=== PATIENT | female | born 1985 | race Caucasian/White ===

== ENCOUNTER 2016-12-20 09:00 | Emergency (ER) | payer OTHER ==
[~2016-12-20 09:00] MED LIST: CITALOPRAM HBR20 MG; ZYRTEC10 MG
[2016-12-20] MEDS ORDERED: VITAMIN D50000 UNI1 PO (09:39)
[2016-12-20] MEDS ORDERED: LEVOTHYROXINE25 MCG PO (09:39)
[2016-12-20] MEDS ORDERED: PERCOCET 5-3251 EACH PO (12:18)
== END 2016-12-20 12:54 | disposition home or self-care (01) ==
LOC: ED 09:00
DX: N20.1 Calculus of ureter (principal); E03.9 Hypothyroidism, unspecified; F32.9 Major depressive disorder, single episode, unspecified; Z90.49 Acquired absence of other specified parts of digestive tract; Z79.899 Other long term (current) drug therapy
CPT/HCPCS: 80053; 81001; 84703; 85025; 87088; 96374; 96375; 99283; J1170; J1885; J2405; J7030

== ENCOUNTER 2019-04-08 14:03 | Emergency (ER) | payer OTHER ==
[~2019-04-08] VITALS: Ht 175.3 cm; Wt 136.1 kg
[~2019-04-08 14:03] MED LIST changes: +LEVOTHYROXINE25 MCG PO; +PERCOCET 5-3251 EACH PO; +VITAMIN D50000 UNI1 PO
[2019-04-08] MEDS ORDERED: VENTOLIN HFA18 GM INH (14:15)
[2019-04-08] MEDS ORDERED: VIIBRYD40 MG PO (14:17)
[2019-04-08] MEDS ORDERED: SEROQUEL XR50 MG PO (14:17)
[2019-04-08] MEDS ORDERED: SPIRONOLACTONE50 MG PO (14:17)
[2019-04-08] MEDS ORDERED: LEVOXYL112 MCG PO (14:18)
[2019-04-08] MEDS ORDERED: SETLAKIN 0.151 EACH PO (14:18)
[2019-04-08] MEDS ORDERED: ZITHROMAX250 MG PO (17:13)
--- NOTE | 2019-04-09 19:12 | EKG ---
[facility] [address] [facility] [place], [place] [address] Signed Normal sinus rhythm Normal ECG No previous ECGs available Confirmed by PALLAVI LAU MD ([id number]) on 04/09/2019 7:12:01 PM Electronically Signed By: PALLAVI LAU MD 04/09/191911 PATIENT NAME: KVNG LOREDO Electrocardiogram DATE OF : 87 PHYSICIAN: PALLAVI LAU MD REPORT #: [id number] REPORT IS CONFIDENTIAL AND NOT TO BE RELEASED WITHOUT AUTHORIZATION
== END 2019-04-08 17:30 | disposition home or self-care (01) ==
LOC: ED 14:03
DX: J45.909 Unspecified asthma, uncomplicated (principal); F32.9 Major depressive disorder, single episode, unspecified; E03.9 Hypothyroidism, unspecified; Z87.442 Personal history of urinary calculi; Z79.899 Other long term (current) drug therapy
CPT/HCPCS: 71046; 80053; 84484; 85025; 85379; 93005; 93010; 96361; 96374; 96375; 99285-25; J1100; J2060; J7030

== ENCOUNTER 2022-03-08 20:24 | Emergency (ER) | payer OTHER ==
[~2022-03-08] VITALS: Ht 175.3 cm; Wt 150.6 kg
[~2022-03-08 20:24] MED LIST changes: +LEVOXYL112 MCG PO; +SEROQUEL XR50 MG PO; +SETLAKIN 0.151 EACH PO; +SPIRONOLACTONE50 MG PO; +VENTOLIN HFA18 GM INH; +VIIBRYD40 MG PO; +ZITHROMAX250 MG PO
[2022-03-08] MEDS ORDERED: CLONIDINE HCL0.1 MG PO (21:26)
[2022-03-08] MEDS ORDERED: HYDROXYZINE HCL50 MG PO (21:27)
[2022-03-08] MEDS ORDERED: FLUOXETINE HCL40 MG PO (21:27)
[2022-03-08] MEDS ORDERED: CYCLOBENZAPRINE10 MG PO (22:50)
== END 2022-03-08 23:14 | disposition home or self-care (01) ==
LOC: ED 20:24
DX: S39.012A Strain of muscle, fascia and tendon of lower back, initial encounter (principal); X50.0XXA Overexertion from strenuous movement or load, initial encounter; E03.9 Hypothyroidism, unspecified; Z79.899 Other long term (current) drug therapy
CPT/HCPCS: 72100; 81001; 84703; 96372; 99283-25; A9270; J1885; J3360

== ENCOUNTER 2022-07-24 14:58 | Emergency (ER) | payer OTHER ==
[~2022-07-24] VITALS: Ht 175.3 cm; Wt 151.0 kg
[~2022-07-24 14:58] MED LIST changes: +CLONIDINE HCL0.1 MG PO; +CYCLOBENZAPRINE10 MG PO; +FLUOXETINE HCL40 MG PO; +HYDROXYZINE HCL50 MG PO
== END 2022-07-24 18:26 | disposition short-term general hospital (02) ==
LOC: ED 14:58
DX: S02.31XA Fracture of orbital floor, right side, initial encounter for closed fracture (principal); S52.572A Other intraarticular fracture of lower end of left radius, initial encounter for closed fracture; E03.9 Hypothyroidism, unspecified; Z79.899 Other long term (current) drug therapy; Z20.822 Contact with and (suspected) exposure to COVID-19; V03.90XA Pedestrian on foot injured in collision with car, pick-up truck or van, unspecified whether traffic or nontraffic accident, initial encounter
CPT/HCPCS: 36415; 70450; 70486; 71260; 72125; 73030; 73110; 73560; 74177; 80053; 84703; 85025; 86850; 86900; 86901; 99285-25; C9803; G0480; J1170; J2405; J7030; Q9967; U0003

== ENCOUNTER 2022-08-11 19:42 | Emergency (ER) | payer OTHER ==
[~2022-08-11] VITALS: Ht 175.3 cm; Wt 151.0 kg
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
[2022-08-11] MEDS ORDERED: OXYCODONE HCL5 MG PO (20:29)
[2022-08-11] MEDS ORDERED: GABAPENTIN300 MG PO (20:29)
[2022-08-11] MEDS ORDERED: ELIQUIS2.5 MG PO (20:29)
== END 2022-08-12 12:20 ==
LOC: ED 19:42
DX: R45.851 Suicidal ideations (principal); E03.9 Hypothyroidism, unspecified; Z88.2 Allergy status to sulfonamides; Z79.899 Other long term (current) drug therapy
CPT/HCPCS: 36415; 80053; 81001; 84443; 85025; 99285; A9270; G0480; U0003

== ENCOUNTER 2022-09-22 06:25 | Day surgery (SDC) | payer OTHER ==
[~2022-09-22] VITALS: Ht 175.3 cm; Wt 150.0 kg
[~2022-09-22 06:25] MED LIST changes: +ELIQUIS2.5 MG PO; +GABAPENTIN300 MG PO; +OXYCODONE HCL5 MG PO; -ZYRTEC10 MG; +ZYRTEC10 MG PO
[2022-09-22] MEDS ORDERED: HYDROCODON-ACE1 EA10 PO (09:31)
--- NOTE | 2022-09-22 09:43 | NUR ---
PT ALERT,ORIENTED AND ANXIOUS TO HAVE PROCEDURE COMPLETED. PT STATED SHE HAS NOT BEEN ABLE TO USE HER HAND/WRIST MUCH THE LAST 2 MONTHS. GAVE ENCOURAGEMENT PTS' SISTER WILL ARRIVE FOR DC. PT DECLINED PRAYER, GAVE BLESSING
--- NOTE | 2022-09-22 09:48 | NUR ---
ASHLI 0940: PT IS BACK TO FROM PACU. SHE IS TAKEN OFF O2 FOR ROOM AIR TRIAL. CALL [facility] WITHIN REACH. WATER ON BEDSIDE TABLE. SHE WOULD LIKE CRACKERS TO SNACK ON. WOULD LIKE PAIN PILL WELL. NO OTHER ISSUES OR CONCERNS AT THIS TIME.
--- NOTE | 2022-09-22 09:52 | NUR ---
09/22/22 0952 Cherelle,Humaira 0849 PT ARRIVED TO PACU WITH ORAL AIRWAY ON PLACE AND 10L VIA MASK. JAW THRUST USED OFF AND ON TO MAINTAIN AIRWAY. O2 DECREASED TO LOW 90S OFF AND ON. 0855 PT WOKE TO TACTILE STIMULI AND ORAL AIRWAY REMOVED. PT ENCOURAGED TO COUGH AND DEEP BREATHE. PT RESP EVEN AND UNLABORED. ICE IN PLACE. 09 PT STARTS MOANING AND REPORTS PAIN IN LEFT WRIST, O2 MASK REMOVED. PT GRIMACING OFF AND ON. 904 PT O2 SAT DECREASED TO 87% AND DEEP BREATHING ENCOURAGED. PT CONTINUES TO REPORTS PAIN AND MOAN. 0907 GARAGE DOOR INSTALLER UPDATED. 0911 PAIN MEDICATION GIVEN PER EMAR. 0918 PT REPORTS "IT TOOK TO EDGE OFF." REPORTS PAIN 7/10. MEDICATION GIVEN. O2 SAT MID 90S. 0924 PT RESTING IN BED WITH NO GRIMACING OR MOANING, EYES CLOSED AND O2 SAT ABOVE 90%. 0928 GARAGE DOOR INSTALLER AT BEDSIDE AND PLAN OF CARE DISCUSSED. 0940 PT REPORTS 4/10 PAIN AND TOLERABLE. REPORT TO DS RN. VSS AND CALL LIGHT WITHIN REACH. ALL QUESTIONS ANSWERED.
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
--- NOTE | 2022-09-22 11:50 | NUR ---
DISCHARGE INSTRUCTIONS PROVIDED. PT STATES VERBAL UNDERSTANDING. IV DC'ED, COBAN AND GAUZE IN PLACE AT THIS TIME. PT REPORTS NO FURTHER QUESTIONS OR NEEDS AT THIS TIME. ALL BELONGINGS IN PT POSSESSION AT THIS TIME. PT OFF UNIT VIA WC BY THIS RN, SISTER HERE FOR PICKUP.
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
== END 2022-09-22 11:50 | disposition home or self-care (01) ==
LOC: DS 06:25
PROVIDERS: ATTEND Specialist
PROC: 0PPJ04Z Removal of Internal Fixation Device from Left Radius, Open Approach (ICD-10-PCS; principal; 2022-09-22 08:30)
DX: Z47.2 Encounter for removal of internal fixation device (principal); S52.572D Other intraarticular fracture of lower end of left radius, subsequent encounter for closed fracture with routine healing; V03.10XA Pedestrian on foot injured in collision with car, pick-up truck or van in traffic accident, initial encounter
CPT/HCPCS: 84703; J0131; J0690; J1100; J1885; J2001; J2250; J2405; J2704; J3010; J7121

== ENCOUNTER 2022-10-28 21:17 | Emergency (ER) | payer OTHER ==
[~2022-10-28] VITALS: Ht 175.3 cm; Wt 145.6 kg
[~2022-10-28 21:17] MED LIST changes: +HYDROCODON-ACE1 EA10 PO
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
[2022-10-28] MEDS ORDERED: HYDROCODON-ACE1 EA10 PO (22:45)
[2022-10-28 23:21] VITALS: BP 122/82
== END 2022-10-28 23:22 | disposition home or self-care (01) ==
LOC: ED 21:17
DX: K80.50 Calculus of bile duct without cholangitis or cholecystitis without obstruction (principal); Z88.2 Allergy status to sulfonamides; Z79.899 Other long term (current) drug therapy; Z79.890 Hormone replacement therapy
CPT/HCPCS: 36415; 80053; 81001; 83690; 84703; 85025; 96374; 96375; 99284-25; A9270; J1170; J1885; J2270; J2405

== ENCOUNTER 2022-11-15 22:38 | Emergency (ER) | payer OTHER ==
[~2022-11-15] VITALS: Ht 175.3 cm; Wt 143.0 kg
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
[2022-11-16] MEDS ORDERED: ONDANSETRON ODT8 MG PO (00:09)
[2022-11-16] MEDS ORDERED: HYDROCODON-ACE1 EA10 PO (00:09)
[2022-11-16 00:30] VITALS: BP 155/92
== END 2022-11-16 00:30 | disposition home or self-care (01) ==
LOC: ED 22:38
DX: K52.9 Noninfective gastroenteritis and colitis, unspecified (principal); R31.9 Hematuria, unspecified; E03.9 Hypothyroidism, unspecified; Z88.2 Allergy status to sulfonamides; Z79.899 Other long term (current) drug therapy
CPT/HCPCS: 36415; 80053; 81001; 83690; 84703; 85025; 96361; 96374; 99284-25; A9270; J2405; J7030

== ENCOUNTER 2024-04-08 22:22 | Emergency (ER) | payer OTHER ==
[~2024-04-08] VITALS: Ht 175.3 cm; Wt 147.0 kg
[~2024-04-08 22:22] MED LIST changes: -LEVOXYL112 MCG PO; +LEVOXYL137 MCG PO; +ONDANSETRON ODT8 MG PO
[2024-04-08] MEDS ORDERED: ondansetron HCL 4 MG/2 ML VIAL IV ONE (23:00)
[2024-04-08] MEDS ORDERED: KETOROLAC TROMETHAMINE 30 MG/ML VIAL IV ONE (23:00)
[2024-04-08] MEDS ORDERED: DEXTROAMP-AMPHE25 MG (23:00)
[2024-04-08] MEDS ORDERED: VENLAFAXINE112.5 MG (23:00)
[2024-04-08] MEDS ORDERED: TRAZODONE HCL50 MG (23:01)
[2024-04-08] MEDS ORDERED: FLUTICASONE-SA1 EAC3 (23:01)
[2024-04-08] MEDS ORDERED: QUETIAPINE FUM100 MG (23:01)
[2024-04-08] MEDS ORDERED: LAMOTRIGINE25 MG (23:01)
[2024-04-08] MEDS ORDERED: CLONIDINE HCL0.1 MG (23:01)
[2024-04-08 23:02] LABS: BILIRUBIN, URINE NEGATIVE (negative); BLOOD/HGB, URINE SMALL (Negative); KETONE, URINE NEGATIVE (Negative); LEUK ESTERASE, URINE NEGATIVE (negative); NITRITE, URINE NEGATIVE (negative)
[2024-04-08 23:03] LABS: EOSINOPHILS 1.6 % (0-6); HEMATOCRIT 38.5 % (35.0-50.0); HEMOGLOBIN 12.8 g/dL (12.0-18.0); LYMPHOCYTES 35.2 % (24-44); MCH 29.5 (27-36); MCHC 33.2 g/dl (30-36); MCV 88.6 fl (81-99); MONOCYTES 5.9 % (0-12); NEUTROPHILS 56.3 % (39-80); PLATELET COUNT 264 K/uL (140-440); RBC 4.34 M/ul (4.3-5.7); RDW 13.4 (10.5-15.0)
[2024-04-08 23:09] LABS: BACTERIA, URINE RARE /hpf (negative); CASTS, URINE NONE SEEN \\lpf; COLLECTION TYPE, URINE CLEAN CATCH; CRYSTALS, URINE NONE SEEN (0-1+); EPITHELIAL CELLS, URINE SQUAMOUS 1+ /lpf (0-1+); REFLEX CULTURE, URINE No (No)
[2024-04-08] MEDS ORDERED: TAMSULOSIN HCL 0.4 MG CAP PO ONE (23:15)
[2024-04-08] MEDS ORDERED: LACTATED RINGER'S 1,000 ML IV ONE (23:15)
[2024-04-08 23:23] LABS: ALBUMIN 3.2 g/dL (3.4-5.0); ALBUMIN/GLOBULIN RATIO 0.78 (1.1-2.4); ANION GAP 12.9 (7-21); BILIRUBIN, TOTAL 0.4 ng/dL (0.2-1.0); BUN/CREATININE RATIO 18.6 (6.0-28.6); CALCIUM 9.7 mg/dL (8.5-10.1); CREATININE, SERUM 0.86 mg/dL (0.55-1.02); POTASSIUM 3.9 mmol/L (3.5-5.1); PROTEIN, TOTAL 7.3 g/dL (6.4-8.2)
[2024-04-09] MEDS ORDERED: FLOMAX0.4 MG PO (02:03)
[2024-04-09] MEDS ORDERED: HYDROCODON-ACE1 EA10 PO (02:03)
[2024-04-09] MEDS ORDERED: HYDROCODONE BIT/ACETAMINOPHEN 5/325 MG 1 TAB HOME.PACK PO ONE (02:15)
[2024-04-09 02:18] VITALS: BP 152/80
[2024-04-10] MEDS ORDERED: ADVAIR 100-501 EACH INH (09:32)
[2024-04-10] MEDS ORDERED: MAGNESIUM250 M1 (09:33)
[2024-04-10] MEDS ORDERED: VITAMIN B121000 MCG PO (09:34)
[2024-04-10] MEDS ORDERED: ZYRTEC10 MG PO (09:34)
== END 2024-04-09 02:20 | disposition home or self-care (01) ==
LOC: ED 22:22
PROVIDERS: Internal Medicine
DX: N13.2 Hydronephrosis with renal and ureteral calculous obstruction (principal); E03.9 Hypothyroidism, unspecified; Z87.442 Personal history of urinary calculi; Z88.2 Allergy status to sulfonamides; Z79.890 Hormone replacement therapy; Z79.899 Other long term (current) drug therapy
CPT/HCPCS: 36415; 74176; 80053; 81001; 84703; 85025; 96374; 96375; 99284-25; A9270; J1885; J2405; J7121

== ENCOUNTER 2024-04-10 12:32 | Day surgery (SDC) | payer OTHER ==
[~2024-04-10] VITALS: Ht 175.3 cm; Wt 145.9 kg
[~2024-04-10 12:32] MED LIST changes: +ADVAIR 100-501 EACH INH; +CEFAZOLIN SODIUM 3 GM/30 ML SYR IV SCH; +CLONIDINE HCL0.1 MG; +DEXTROAMP-AMPHE25 MG; +FLOMAX0.4 MG PO; +FLUTICASONE-SA1 EAC3; +HYDROmorphone HCL 1 MG/ML SYR IV PRN; +IBLOOD GLUCOSE TEST STRIP 1 EA TEST VI PRN; +KETOROLAC TROMETHAMINE 30 MG/ML VIAL IV PRN; +LACTATED RINGER'S 1,000 ML IV SCH; +LAMOTRIGINE25 MG; +LIDOCAINE HCL 1% 5 ML SDV INJ ONE; +MAGNESIUM250 M1; +OXYCODONE/APAP 5/325 TAB PO PRN; +PHENAZOPYRIDINE HCL 95 MG TAB PO PRN; +QUETIAPINE FUM100 MG; +SEVOFLURANE 250 ML BTL INH ONE; +TRAZODONE HCL50 MG; +VENLAFAXINE112.5 MG; +VITAMIN B121000 MCG PO; +ondansetron HCL 4 MG/2 ML VIAL IV PRN
[2024-04-10 12:42] VITALS: BP 157/83
[2024-04-10] MEDS ORDERED: iopamidoL 30 ML VIAL ONE (13:10)
[2024-04-10] MEDS ORDERED: ACETAMINOPHEN 1,000 MG/100 ML VIAL ONE (13:17)
[2024-04-10] MEDS ORDERED: SCOPOLAMINE 1 MG/3 DAYS PATCH 1 EACH TDSY ONE (13:17)
[2024-04-10] MEDS ORDERED: fentaNYL citrate 100 MCG/2 ML VIAL ONE ×2 (13:17→14:48)
[2024-04-10] MEDS ORDERED: propofoL 200 MG/20 ML VIAL ONE (13:17)
[2024-04-10] MEDS ORDERED: MIDAZOLAM HCL 2 MG/2 ML VIAL ONE (13:17)
[2024-04-10] MEDS ORDERED: ondansetron HCL 4 MG/2 ML VIAL ONE (13:17)
[2024-04-10] MEDS ORDERED: LIDOCAINE HCL 2% 5 ML SDV ONE (13:17)
[2024-04-10] MEDS ORDERED: ROCURONIUM BROMIDE 50 MG/5 ML SYR ONE (13:17)
[2024-04-10] MEDS ORDERED: DEXAMETHASONE SOD PHOS 4 MG/ML VIAL ONE (13:17)
[2024-04-10] MEDS ORDERED: KETOROLAC TROMETHAMINE 30 MG/ML VIAL ONE (13:17)
[2024-04-10] MEDS ORDERED: SUGAMMADEX SODIUM 200 MG/2 ML ML ONE (13:18)
[2024-04-10] MEDS ORDERED: PROCHLORPERAZINE EDISYLATE 10 MG/2 ML VIAL IV PRN (14:00)
[2024-04-10] MEDS ORDERED: droPERidol 5 MG/2 ML VIAL IV PRN (14:00)
[2024-04-10] MEDS ORDERED: fentaNYL citrate 50 MCG/ML SDV IV PRN (14:00)
[2024-04-10] MEDS ORDERED: IBLOOD GLUCOSE TEST STRIP 1 EA TEST VI PRN (14:00)
[2024-04-10] MEDS ORDERED: HYDROmorphone HCL 1 MG/ML SYR IV PRN (14:00)
[2024-04-10] MEDS ORDERED: NALOXONE HCL 0.4 MG SYR IV PRN (14:00)
[2024-04-10] MEDS ORDERED: ondansetron HCL 4 MG/2 ML VIAL IV PRN (14:00)
[2024-04-10] MEDS ORDERED: LACTATED RINGER'S 1,000 ML IV ONE (14:39)
--- NOTE | 2024-04-10 15:26 | NUR ---
04/10/24 1526 JANAE HERNANDEZ 1458 PT ARRIVED TO PACU VIA STREACHER. PT HAS ORAL AIRWAY IN PLACE, PT HAS 6L OF O2 VIA FACE MASK. PT NEEDING JAW THRUST CONTINUOUSLY TO MAINTAIN AIRWAY PATIENTCY. REPORT TAKEN FROM EMMY GOMEZ. 1505 PT BECAME REACTIVE TO JAW THRUSTING, PT ABLE TO FOLLOW COMMANDS AND OPEN MOUTH. ORAL AIRWAY REMOVED. 1515 PT REPORTING NO PAIN AT THIS TIME OR NAUSEA. PT STILL VERY DROWSEY. 1520 PT REPORTS 3/10 PAIN, OXYGEN REMOVED. PT MAINTAINING ABOVE 90% OXYGEN ON RA. 1525 PT OXYGEN SATURATIONS DIP DOWN TO 90% ON RA WHEN PT FALLS ASLEEP, PT AROUSED TO VERBAL STIMULI AND FOLLOW COMMANDS FOR DEEP BREATHING. WHEN DEEP BREATHING PT OXYGEN SAT GOES UP TO 100% ON RA.
[2024-04-10 15:43] VITALS: BP 148/84
--- NOTE | 2024-04-10 15:54 | NUR ---
Patient returns to room 4 via bed from PACU. patient is awake, but still a little drowsy. she is reporting some slight nausea, but believes it might be due to being hungry. crackers, pudding, and water provided to patient and instructed to go slow with putting food back into her stomach. Patient reports her pain as a 3/10 and states that it is tolerable. She feels a slight urge to urinate but denies wanting to get up and try to urinate at this time. No blood loss during surgery. ureteral stent in place that is adhered to patient's left leg with steri strips. patient is to remove this herself later this week. bed is in lowest position and call light is within reach. she denies any other needs at this time.
[2024-04-10 16:43] VITALS: BP 175/86
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
--- NOTE | 2024-04-10 21:44 | EKG ---
[facility] [address] [facility] [place], [place] [address] Signed Normal sinus rhythm Normal ECG When compared with ECG of 08-APR-2019 14:28, No significant change was found Confirmed by Rayshawn Mon MD ([id number]) on 04/10/2024 9:43:50 PM Electronically Signed By: RAYSHAWN MON DO 04/10/242143 PATIENT NAME: FACUNDOBRAXTON PepperKVNGJULIO ZAVALA Electrocardiogram DATE OF : 87 PHYSICIAN: RAYSHAWN MON DO REPORT #: [id number] REPORT IS CONFIDENTIAL AND NOT TO BE RELEASED WITHOUT AUTHORIZATION
[2024-04-11] MEDS ORDERED: ONDANSETRON ODT8 MG PO (21:36)
[2024-04-14 15:30] LABS: CALCULI MASS 32 mg (())
== END 2024-04-10 16:50 | disposition home or self-care (01) ==
LOC: DS 12:32
PROVIDERS: ATTEND Urology
PROC: BT1DZZZ Fluoroscopy of Right Kidney, Ureter and Bladder (ICD-10-PCS; principal; 2024-04-10 12:45)
PROC: 0TC08ZZ Extirpation of Matter from Right Kidney, Via Natural or Artificial Opening Endoscopic (ICD-10-PCS; 2024-04-10 12:45)
DX: N13.2 Hydronephrosis with renal and ureteral calculous obstruction (principal); E03.9 Hypothyroidism, unspecified; Z79.899 Other long term (current) drug therapy; Z88.2 Allergy status to sulfonamides
CPT/HCPCS: 00910; 74420; 82365; 93005; 93010; C1769; C2617; J0131; J0690; J1100; J1885; J2250; J2405; J2704; J3010; J3490; J7121; Q9967

== ENCOUNTER 2024-04-11 18:25 | Emergency (ER) | payer OTHER ==
[~2024-04-11] VITALS: Ht 175.3 cm; Wt 149.9 kg
[~2024-04-11 18:25] MED LIST changes: -CEFAZOLIN SODIUM 3 GM/30 ML SYR IV SCH; -HYDROmorphone HCL 1 MG/ML SYR IV PRN; -IBLOOD GLUCOSE TEST STRIP 1 EA TEST VI PRN; -KETOROLAC TROMETHAMINE 30 MG/ML VIAL IV PRN; -LACTATED RINGER'S 1,000 ML IV SCH; -LIDOCAINE HCL 1% 5 ML SDV INJ ONE; -OXYCODONE/APAP 5/325 TAB PO PRN; -PHENAZOPYRIDINE HCL 95 MG TAB PO PRN; -SEVOFLURANE 250 ML BTL INH ONE; -ondansetron HCL 4 MG/2 ML VIAL IV PRN
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
[2024-04-11] MEDS ORDERED: MORPHINE SULFATE 4 MG/ML VIAL IV ONE (20:30)
[2024-04-11] MEDS ORDERED: ondansetron HCL 4 MG/2 ML VIAL IV ONE (20:30)
[2024-04-11 20:56] LABS: BASOPHILS 0.6 % (0-2); EOSINOPHILS 0.7 % (0-6); HEMATOCRIT 36.3 % (35.0-50.0); HEMOGLOBIN 12.2 g/dL (12.0-18.0); LYMPHOCYTES 34.3 % (24-44); MCH 29.5 (27-36); MCHC 33.6 g/dl (30-36); MCV 87.7 fl (81-99); MONOCYTES 5.6 % (0-12); NEUTROPHILS 58.8 % (39-80); PLATELET COUNT 239 K/uL (140-440); RBC 4.14 M/ul (4.3-5.7)
[2024-04-11 21:12] LABS: ALBUMIN 3.1 g/dL (3.4-5.0); ALBUMIN/GLOBULIN RATIO 0.78 (1.1-2.4); ANION GAP 13.3 (7-21); BILIRUBIN, TOTAL 0.3 ng/dL (0.2-1.0); BUN/CREATININE RATIO 23.86 (6.0-28.6); CALCIUM 8.7 mg/dL (8.5-10.1); CREATININE, SERUM 0.88 mg/dL (0.55-1.02); POTASSIUM 4.3 mmol/L (3.5-5.1); PROTEIN, TOTAL 7.1 g/dL (6.4-8.2)
[2024-04-11] MEDS ORDERED: KETOROLAC TROMETHAMINE 30 MG/ML VIAL IV ONE (21:15)
[2024-04-11] MEDS ORDERED: ONDANSETRON ODT8 MG PO (21:36)
[2024-04-11] MEDS ORDERED: ONDANSETRON 4 MG HOME.PACK SL ONE (21:45)
[2024-04-11] MEDS ORDERED: HYDROCODONE BIT/ACETAMINOPHEN 5/325 MG 1 TAB HOME.PACK PO ONE (21:45)
[2024-04-11 21:52] VITALS: BP 167/88
== END 2024-04-11 21:53 | disposition home or self-care (01) ==
LOC: ED 18:25
PROVIDERS: Family Medicine
DX: G89.18 Other acute postprocedural pain (principal); R10.9 Unspecified abdominal pain; E03.9 Hypothyroidism, unspecified; N13.2 Hydronephrosis with renal and ureteral calculous obstruction; Z88.2 Allergy status to sulfonamides; Z79.890 Hormone replacement therapy; Z79.899 Other long term (current) drug therapy
CPT/HCPCS: 36415; 74176; 80053; 85025; 96374; 96375; 99284-25; A9270; J1885; J2270; J2405

== ENCOUNTER 2024-04-14 20:05 | Emergency (ER) | payer OTHER ==
[~2024-04-14] VITALS: Ht 175.3 cm; Wt 147.6 kg
[2024-04-14] MEDS ORDERED: KETOROLAC TROMETHAMINE 30 MG/ML VIAL IV ONE (20:30)
[2024-04-14] MEDS ORDERED: HYDROmorphone HCL 1 MG/ML SYR IV PRN (20:45)
[2024-04-14 20:55] LABS: BASOPHILS 0.4 % (0-2); EOSINOPHILS 1.4 % (0-6); HEMATOCRIT 38.6 % (35.0-50.0); HEMOGLOBIN 12.6 g/dL (12.0-18.0); LYMPHOCYTES 16.9 % (24-44); MCH 29.2 (27-36); MCHC 32.6 g/dl (30-36); MCV 89.3 fl (81-99); MONOCYTES 7.3 % (0-12); PLATELET COUNT 198 K/uL (140-440); RBC 4.32 M/ul (4.3-5.7); RDW 13.4 (10.5-15.0)
[2024-04-14 21:03] LABS: BILIRUBIN, URINE NEGATIVE (negative); BLOOD/HGB, URINE LARGE (Negative); KETONE, URINE TRACE (Negative); LEUK ESTERASE, URINE NEGATIVE (negative); NITRITE, URINE POSITIVE (negative)
[2024-04-14 21:08] LABS: EPITHELIAL CELLS, URINE SQUAMOUS 1+ /lpf (0-1+); RED BLOOD CELLS, URINE >50 /hpf (0-5)
[2024-04-14 21:08] LABS: ALBUMIN 3.4 g/dL (3.4-5.0); ALBUMIN/GLOBULIN RATIO 0.79 (1.1-2.4); ANION GAP 15.4 (7-21); BILIRUBIN, TOTAL 0.5 ng/dL (0.2-1.0); BUN/CREATININE RATIO 16.23 (6.0-28.6); CALCIUM 9.2 mg/dL (8.5-10.1); CREATININE, SERUM 1.17 mg/dL (0.55-1.02); POTASSIUM 4.4 mmol/L (3.5-5.1); PROTEIN, TOTAL 7.7 g/dL (6.4-8.2)
[2024-04-14 21:09] LABS: BACTERIA, URINE RARE /hpf (negative); CASTS, URINE NONE SEEN \\lpf; COLLECTION TYPE, URINE CLEAN CATCH; CRYSTALS, URINE NONE SEEN (0-1+); REFLEX CULTURE, URINE No (No)
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
[2024-04-14] MEDS ORDERED: CEFTRIAXONE/SODIUM CHLORIDE 2 GM/100 ML PIGGYBACK IV ONE (22:30)
[2024-04-14] MEDS ORDERED: DILAUDID2 MG PO (22:53)
[2024-04-14] MEDS ORDERED: KETOROLAC TROME10 MG PO (22:53)
[2024-04-14] MEDS ORDERED: HYDROmorphone HCL 2 MG HOME.PACK PO ONE (23:00)
[2024-04-14 23:05] VITALS: BP 155/83
== END 2024-04-14 23:06 | disposition home or self-care (01) ==
LOC: ED 20:05
PROVIDERS: Family Medicine
DX: N13.2 Hydronephrosis with renal and ureteral calculous obstruction (principal); E03.9 Hypothyroidism, unspecified; Z87.442 Personal history of urinary calculi; Z88.2 Allergy status to sulfonamides; Z79.890 Hormone replacement therapy; Z79.899 Other long term (current) drug therapy
CPT/HCPCS: 36415; 74176; 80053; 81001; 84703; 85025; 96374; 96375; 99284-25; J0696; J1885

== ENCOUNTER 2024-10-30 20:14 | Emergency (ER) | payer OTHER ==
[~2024-10-30] VITALS: Ht 175.3 cm; Wt 153.2 kg
[~2024-10-30 20:14] MED LIST changes: +DILAUDID2 MG PO; +KETOROLAC TROME10 MG PO
[2024-10-30] MEDS ORDERED: methylPREDNISolone SOD SUCC 125 MG/2 ML VIAL IV ONE (21:00)
[2024-10-30] MEDS ORDERED: ALBUTEROL/IPRATROPIUM 3 ML NEB INH ONE (21:00)
[2024-10-30] MEDS ORDERED: LACTATED RINGER'S 1,000 ML IV ONE (21:00)
[2024-10-30 21:14] LABS: BASOPHILS 0.7 % (0-2); EOSINOPHILS 0.2 % (0-6); HEMATOCRIT 37.7 % (35.0-50.0); HEMOGLOBIN 12.9 g/dL (12.0-18.0); LYMPHOCYTES 34.8 % (24-44); MCH 29.5 (27-36); MCHC 34.3 g/dl (30-36); MONOCYTES 8.4 % (0-12); NEUTROPHILS 55.9 % (39-80); PLATELET COUNT 266 K/uL (140-440); RBC 4.38 M/ul (4.3-5.7); RDW 14.1 (10.5-15.0)
[2024-10-30 21:29] LABS: BILIRUBIN, URINE NEGATIVE (negative); BLOOD/HGB, URINE NEGATIVE (Negative); KETONE, URINE TRACE (Negative); LEUK ESTERASE, URINE NEGATIVE (negative); NITRITE, URINE NEGATIVE (negative)
[2024-10-30 21:42] LABS: ALBUMIN 3.4 g/dL (3.4-5.0); ALBUMIN/GLOBULIN RATIO 0.83 (1.1-2.4); ALKALINE PHOSPHATASE 123 U/L (46-116); ALT (SGPT) 42 U/L (14-59); ANION GAP 14.5 (7-21); AST (SGOT) 33 U/L (15-37); BILIRUBIN, TOTAL 0.4 mg/dL (0.2-1.0); CALCIUM 8.9 mg/dL (8.5-10.1); CARBON DIOXIDE 24 mmol/L (21-32); CHLORIDE 104 mmol/L (98-107); CREATININE, SERUM 0.93 mg/dL (0.55-1.02); GLOMERULAR FILTRATION RATE,EST 81 mL/min (>60); MAGNESIUM 1.7 mg/dL (1.8-2.4); POTASSIUM 4.5 mmol/L (3.5-5.1); PROTEIN, TOTAL 7.5 g/dL (6.4-8.2); UREA NITROGEN 12 mg/dL (7-18)
[2024-10-30 21:43] LABS: AMPHETAMINES, URINE POSITIVE (NEGATIVE); BARBITURATES, URINE NEGATIVE (NEGATIVE); BENZODIAZEPINE, URINE NEGATIVE (NEGATIVE); BUPRENORPHINE, URINE NEGATIVE (NEGATIVE); CANNABINOID, URINE NEGATIVE (NEGATIVE); COCAINE, URINE NEGATIVE (NEGATIVE); ECSTASY, URINE POSITIVE (NEGATIVE); FENTANYL, URINE NEGATIVE (NEGATIVE); METHADONE, URINE NEGATIVE (NEGATIVE); OPIATES, URINE NEGATIVE (NEGATIVE); OXYCODONE, URINE NEGATIVE (NEGATIVE); PHENCYCLIDINE, URINE NEGATIVE (NEGATIVE)
[2024-10-30] MEDS ORDERED: METHYLPREDNISOLO4 M1 PO (22:41)
[2024-10-30 22:55] VITALS: BP 117/70
--- NOTE | 2024-10-31 22:00 | EKG ---
[facility] [address] [facility] [place] [address] Signed Sinus tachycardia Otherwise normal ECG When compared with ECG of 20-OCT-2024 16:25, No significant change was found Confirmed by Ravi Sandoval MD () on 10/31/2024 10:00:03 PM Electronically Signed By: RAVI SANDOVAL MD 10/31/242199 PATIENT NAME: BRAXTON LOREDOJULIO SALDANAE Electrocardiogram DATE OF : 87 PHYSICIAN: RAVI SANDOVAL MD REPORT #: [id number] REPORT IS CONFIDENTIAL AND NOT TO BE RELEASED WITHOUT AUTHORIZATION
== END 2024-10-30 22:56 | disposition home or self-care (01) ==
LOC: ED 20:14
PROVIDERS: Internal Medicine
DX: J45.901 Unspecified asthma with (acute) exacerbation (principal); F15.90 Other stimulant use, unspecified, uncomplicated; E03.9 Hypothyroidism, unspecified; Z88.2 Allergy status to sulfonamides; Z79.899 Other long term (current) drug therapy; Z79.891 Long term (current) use of opiate analgesic
CPT/HCPCS: 36415; 71045; 80053; 80307; 81003; 83735; 83880; 84443; 84484; 84703; 85025; 85379; 93005; 93010; 94640; 96374; 99285-25; J2919; J7121

== ENCOUNTER 2025-01-02 07:22 | Day surgery (SDC) | payer OTHER ==
[~2025-01-02] VITALS: Ht 175.3 cm; Wt 152.0 kg
[~2025-01-02 07:22] MED LIST changes: +CEFAZOLIN SODIUM 3 GM/30 ML SYR IV SCH; +IBLOOD GLUCOSE TEST STRIP 1 EA TEST VI PRN; +LACTATED RINGER'S 1,000 ML IV SCH; +LIDOCAINE HCL 1% 5 ML SDV INJ ONE; +METHYLPREDNISOLO4 M1 PO; +QUETIAPINE FUM100 MG PO
[2025-01-02 07:42] VITALS: BP 151/80
[2025-01-02] MEDS ORDERED: fentaNYL citrate 100 MCG/2 ML VIAL ONE (07:50)
[2025-01-02] MEDS ORDERED: MIDAZOLAM HCL 2 MG/2 ML VIAL ONE (07:50)
[2025-01-02] MEDS ORDERED: KETOROLAC TROMETHAMINE 30 MG/ML VIAL ONE (07:50)
[2025-01-02] MEDS ORDERED: LIDOCAINE HCL 2% 5 ML SDV ONE (07:50)
[2025-01-02] MEDS ORDERED: LIDOCAINE HCL 0.5% 50 ML SDV ONE (07:51)
[2025-01-02] MEDS ORDERED: HYDROCODONE/ACETA 5/325 TAB PO PRN (09:00)
[2025-01-02] MEDS ORDERED: DEXAMETHASONE SOD PHOS 4 MG/ML VIAL ONE ×2 (09:21→09:22)
[2025-01-02] MEDS ORDERED: KETAMINE in NS 50 MG/5 ML SYR ONE (09:31)
[2025-01-02] MEDS ORDERED: HYDROCODON-ACE1 EA10 PO (09:49)
[2025-01-02 10:39] VITALS: BP 147/85
--- NOTE | 2025-01-02 10:59 | OR ---
[facility] [address] [place], [place] [address] Signed DATE OF OPERATION: 01/02/2025 SURGEON: Vivi Sotelo MD PREOPERATIVE DIAGNOSIS: Carpal tunnel syndrome, right. POSTOPERATIVE DIAGNOSIS: Carpal tunnel syndrome, right. PROCEDURE PERFORMED: Right carpal tunnel release. HEEL SCOURER: None. ANESTHESIA: Jerome block. TOURNIQUET TIME: 20 minutes. BRIEF HISTORY: Kvng is a 39-year-old female with progressive worsening of pain and numbness in her hand. Risks and benefits of operative treatment were discussed with her after nerve conduction studies were found to be significant. She elected to proceed. DESCRIPTION OF PROCEDURE: Once consent was obtained, she was taken to the operating room. After adequate anesthesia, she was left on the day surgery bed and hand table was brought in. The arm was prepped and draped in a standard sterile fashion. The carpal tunnel was approached through a standard 1.5 cm incision in the distal wrist crease, carried through the skin and subcutaneous tissue. The remnants of the palmaris longus were identified, retracted and protected. The transverse carpal ligament was then identified, dissected free of overlying soft tissue and transected using tenotomy scissors. This was done under direct loupe magnification. The ligament was found to be quite thick and was released with some difficulty in the proximal half. Distally, it was fairly thin. The ligament was transected distally to a full extent. This was palpated using a [place] and found to be completely released. The wound was then copiously irrigated with normal saline, closed with 3-0 nylon and the skin was injected with 6 mL 0.25% Marcaine. The wound was Electronically Signed By: VIVI SOTELO MD 01/02/25 1059 PATIENT NAME: KVNG LROEDO OPERATIVE REPORT DATE OF : 87 REPORT #: [id number] PHYSICIAN: VIVI SOTELO MD PCP: NUNU SANCHEZ PAC REPORT IS CONFIDENTIAL AND NOT TO BE RELEASED WITHOUT AUTHORIZATION [facility] [address] [place], [place] [address] Signed then dressed with bacitracin, Adaptic, 4 x 8s, and gauze. She tolerated the procedure well. All sponge, needle, and instrument counts were correct. Vivi Sotelo MD BA/MODL /[id number] Copies: ~ Electronically Signed By: VIVI SOTELO MD 01/02/25 1059 PATIENT NAME: KVNG LOREDO OPERATIVE REPORT DATE OF : 87 REPORT #: [id number] PHYSICIAN: VIVI SOTELO MD PCP: NUNU SANCHEZ PAC REPORT IS CONFIDENTIAL AND NOT TO BE RELEASED WITHOUT AUTHORIZATION
== END 2025-01-02 10:42 | disposition home or self-care (01) ==
LOC: DS 07:22
PROVIDERS: ATTEND Specialist
PROC: 01N50ZZ Release Median Nerve, Open Approach (ICD-10-PCS; principal; 2025-01-02 09:30)
DX: G56.01 Carpal tunnel syndrome, right upper limb (principal); J45.909 Unspecified asthma, uncomplicated; E03.9 Hypothyroidism, unspecified; Z88.2 Allergy status to sulfonamides; Z79.899 Other long term (current) drug therapy
CPT/HCPCS: 01810; 84703; J0690; J1100; J1885; J2003; J2250; J2405; J2704; J3010; J3490; J7121

== ENCOUNTER 2025-04-08 09:56 | Emergency (ER) | payer OTHER ==
[~2025-04-08] VITALS: Ht 175.3 cm; Wt 159.0 kg
[~2025-04-08 09:56] MED LIST changes: -CEFAZOLIN SODIUM 3 GM/30 ML SYR IV SCH; -IBLOOD GLUCOSE TEST STRIP 1 EA TEST VI PRN; -LACTATED RINGER'S 1,000 ML IV SCH; -LIDOCAINE HCL 1% 5 ML SDV INJ ONE
[2025-04-08] MEDS ORDERED: MORPHINE SULFATE 4 MG/ML VIAL IV ONE ×3 (10:15→14:15)
[2025-04-08 10:17] LABS: BLOOD/HGB, URINE LARGE (Negative); KETONE, URINE NEGATIVE (Negative); LEUK ESTERASE, URINE MODERATE (negative); NITRITE, URINE POSITIVE (negative)
[2025-04-08] MEDS ORDERED: MIRTAZAPINE15 MG PO (10:26)
[2025-04-08 10:27] LABS: BACTERIA, URINE RARE /hpf (negative); CASTS, URINE NONE SEEN \\lpf; CRYSTALS, URINE NONE SEEN (0-1+); EPITHELIAL CELLS, URINE 0 /lpf (0-1+); REFLEX CULTURE, URINE Yes (No)
[2025-04-08 10:36] LABS: BASOPHILS 0.3 % (0.1-1.2); EOSINOPHILS 0.9 % (0.7-5.8); LYMPHOCYTES 15.1 % (19.3-51.7); MCH 29.5 PG (25.6-32.2); MCHC 32.6 g/dL (32.2-35.5); MCV 90.3 fL (79.4-94.8); MONOCYTES 6.5 % (4.7-12.5); NEUTROPHILS 77.0 % (34.0-71.1); RBC 4.31 M/uL (3.93-5.22)
[2025-04-08 10:51] LABS: ALT (SGPT) 26.0 U/L (14-59); AST (SGOT) 10.0 U/L (15-37); GLOMERULAR FILTRATION RATE,EST 114.0 mL/min (>60); PROTEIN, TOTAL 7.3 g/dL (6.4-8.2); UREA NITROGEN 7.0 mg/dL (7-18)
[2025-04-08] MEDS ORDERED: SODIUM CHLORIDE 0.9% 1,000 ML IV PRN (12:00)
[2025-04-08 14:30] VITALS: BP 154/97
--- NOTE | 2025-04-08 15:02 | EKG ---
[facility] [address] [place], [place] [address] Signed Normal sinus rhythm Normal ECG When compared with ECG of 30-OCT-2024 20:54, No significant change was found Confirmed by NESSA THOMPSON MD ([id number]) on 04/08/2025 3:02:40 PM Electronically Signed By: NESSA THOMPSON 04/08/25 1502 PATIENT NAME: KVNG LOREDO Electrocardiogram DATE OF : 87 PHYSICIAN: NESSA THOMPSON REPORT #: [id number] REPORT IS CONFIDENTIAL AND NOT TO BE RELEASED WITHOUT AUTHORIZATION
== END 2025-04-08 14:30 | disposition short-term general hospital (02) ==
LOC: ED 09:56
PROVIDERS: Emergency Medicine
DX: N13.2 Hydronephrosis with renal and ureteral calculous obstruction (principal); Z88.2 Allergy status to sulfonamides; E03.9 Hypothyroidism, unspecified; J45.909 Unspecified asthma, uncomplicated; Z79.899 Other long term (current) drug therapy
CPT/HCPCS: 36415; 74176; 80053; 81001; 83690; 84703; 85025; 87088; 87186; 93005; 93010; 96365; 96375; 96376; 99285-25; J0696; J2270; J2405; J7030

== ENCOUNTER 2025-04-13 18:39 | Emergency (ER) | payer OTHER ==
[~2025-04-13] VITALS: Ht 175.3 cm; Wt 159.0 kg
[~2025-04-13 18:39] MED LIST changes: +MIRTAZAPINE15 MG PO
--- OUTSIDE RECORDS SUMMARY | 2025-04-13 18:46 | XMS ---
PreManage Notification: KVNG LOREDO Security Environmental Protection Inspector Events No recent Security Events currently on file CRITERIA MET - [facility] - 2 Visits in 30 Days CARE PROVIDERS -, [facility]ist: Gaming Dealer Current [place] PHONE: [phone] -[place]- Dentist: Gaming Dealer Current [facility] PHONE: [phone] [facility]: [facility] Current FAMILY PHONE: [phone] Ana Miner Physician Air Conditioning Coil Assembler Current [place]-J[place] PHONE: [phone] Tello has no Care Guidelines for this patient. Uzma VISIT COUNT (12 MO.) 4 GELY Roman TOTAL 4 NOTE: Visits indicate total known visits. ED/UCC VISIT TRACKING (12 MO.) 04/13/2025 18:40 [facility] [place] TYPE: Emergency COMPLAINT: - POST OP PROBLEM 04/08/2025 09:56 [facility] [place] TYPE: Emergency COMPLAINT: - FLANK PAIN DIAGNOSES: - Allergy status to sulfonamides - Flank pain, bilateral - Hydronephrosis with renal and ureteral calculous obstruction - Hypothyroidism, unspecified - Other alf (current) drug therapy - Unspecified asthma, uncomplicated 10/30/2024 20:14 [facility] [place] TYPE: Emergency COMPLAINT: - TROUBLE BREATHING DIAGNOSES: - Allergy status to sulfonamides - Hypothyroidism, unspecified - building manager (current) use of opiate analgesic - Other rock lather (current) drug therapy - Other stimulant use, unspecified, uncomplicated - Shortness of breath - Unspecified asthma with (acute) exacerbation 04/14/2024 20:06 [facility] [place] TYPE: Emergency COMPLAINT: - FLANK PAIN DIAGNOSES: - Allergy status to sulfonamides - Hormone replacement therapy - Hydronephrosis with renal and ureteral calculous obstruction - Hypothyroidism, unspecified - Other rock lather (current) drug therapy - Personal history of urinary calculi - Unspecified abdominal pain INPATIENT VISIT TRACKING (12 MO.) 04/08/2025 16:20 [facility]: Surgery DIAGNOSES: - Acute cystitis with hematuria - Calculus of ureter - Unspecified hydronephrosis - obstruction ureter stone [id number]
[2025-04-13] MEDS ORDERED: KETOROLAC TROMETHAMINE 15 MG/ML VIAL IV ONE ×2 (19:00→20:00)
[2025-04-13 19:16] LABS: MCH 29.0 PG (25.6-32.2); MCHC 32.1 g/dL (32.2-35.5); MCV 90.5 fL (79.4-94.8); RBC 4.20 M/uL (3.93-5.22)
[2025-04-13 19:28] LABS: EOSINOPHILS, MANUAL DIFF 6; LYMPHOCYTES, MANUAL DIFF 36; MONOCYTES, MANUAL DIFF 5; NEUTROPHILS, MANUAL DIFF 53
[2025-04-13 19:29] LABS: BLOOD/HGB, URINE LARGE (Negative); KETONE, URINE SMALL (Negative); LEUK ESTERASE, URINE MODERATE (negative); NITRITE, URINE POSITIVE (negative)
[2025-04-13 19:35] LABS: ALT (SGPT) 36.0 U/L (14-59); AST (SGOT) 33.0 U/L (15-37); GLOMERULAR FILTRATION RATE,EST 91.0 mL/min (>60); PROTEIN, TOTAL 7.5 g/dL (6.4-8.2); UREA NITROGEN 12.0 mg/dL (7-18)
[2025-04-13 19:36] LABS: BACTERIA, URINE RARE /hpf (negative); CASTS, URINE NONE SEEN \\lpf; CRYSTALS, URINE NONE SEEN (0-1+); EPITHELIAL CELLS, URINE NONE SEEN /lpf (0-1+); REFLEX CULTURE, URINE Yes (No)
[2025-04-13] MEDS ORDERED: LACTATED RINGER'S 1,000 ML IV ONE (20:00)
[2025-04-13] MEDS ORDERED: HYDROmorphone HCL 1 MG/ML SYR IV ONE (20:00)
[2025-04-13] MEDS ORDERED: PERCOCET 5-3251 EACH PO (21:20)
[2025-04-13] MEDS ORDERED: FLOMAX0.4 MG PO (21:20)
[2025-04-13] MEDS ORDERED: OXYCODONE/ACETAMINOPHEN 1 TAB HOME.PACK PO ONE (21:30)
[2025-04-13] MEDS ORDERED: methylPREDNISolone 4 MG HOME.PACK PO ONE (21:30)
[2025-04-13] MEDS ORDERED: ONDANSETRON 4 MG HOME.PACK SL ONE (21:30)
[2025-04-13] MEDS ORDERED: TAMSULOSIN HCL 0.4 MG CAP PO ONE (21:30)
[2025-04-13 21:41] VITALS: BP 163/94
== END 2025-04-13 21:53 | disposition home or self-care (01) ==
LOC: ED 18:39
PROVIDERS: Emergency Medicine
DX: R31.9 Hematuria, unspecified (principal); E03.9 Hypothyroidism, unspecified; J45.909 Unspecified asthma, uncomplicated; Z79.899 Other long term (current) drug therapy; Z88.2 Allergy status to sulfonamides
CPT/HCPCS: 36415; 74176; 80053; 81001; 84703; 85025; 87088; 96374; 96375; 99284-25; A9270; J1171; J1885; J7121

== ENCOUNTER 2025-05-05 15:39 | Emergency (ER) | payer OTHER | END 2025-05-05 19:20 | disposition home or self-care (01) | LOC: ED 15:39 | DX: N12 Tubulo-interstitial nephritis, not specified as acute or chronic (principal); E03.9 Hypothyroidism, unspecified; J45.909 Unspecified asthma, uncomplicated; Z79.899 Other long term (current) drug therapy; Z88.2 Allergy status to sulfonamides ==

== ENCOUNTER 2025-05-29 18:58 | Inpatient (IN) | payer OTHER ==
[~2025-05-29] VITALS: Ht 175.3 cm; Wt 155.0 kg
[~2025-05-29 18:58] MED LIST changes: +AMLODIPINE BESYL5 MG PO; +CEPHALEXIN500 M1 PO; -CLONIDINE HCL0.1 MG
--- OUTSIDE RECORDS SUMMARY | 2025-05-29 19:05 | XMS ---
PreManage Notification: KVNG LOREDO Security Controls Design Engineer Events No recent Security Events currently on file CRITERIA MET - [facility] - 2 Visits in 30 Days CARE PROVIDERS -, [facility]ist: Radiation Engineer Current [place] PHONE: [phone] -, [place]- Dentist: Radiation Engineer Current [facility] PHONE: [phone] [facility] Current FAMILY PHONE: Unknown Ana Miner Physician Cotton Weigher Operator Current MELVINA-C PHONE: [phone] Tello has no Care Guidelines for this patient. Uzma VISIT COUNT (12 MO.) 5 GELY Roman TOTAL 5 NOTE: Visits indicate total known visits. ED/UCC VISIT TRACKING (12 MO.) 05/29/2025 18:59 [facility] [place] TYPE: Emergency COMPLAINT: - FEVER 05/05/2025 15:39 [facility] [place] TYPE: Emergency COMPLAINT: - FEVER DIAGNOSES: - Allergy status to sulfonamides - Flank pain, bilateral - Hypothyroidism, unspecified - Other terminal make up operator (current) drug therapy - Tubulo-interstitial nephritis, not specified as acute or chronic - Unspecified asthma, uncomplicated 04/13/2025 18:40 [facility] [place] TYPE: Emergency COMPLAINT: - POST OP PROBLEM DIAGNOSES: - Allergy status to sulfonamides - Flank pain, left side - Hematuria, unspecified - Hypothyroidism, unspecified - Other fci (current) drug therapy - Unspecified asthma, uncomplicated 04/08/2025 09:56 [facility] [place] TYPE: Emergency COMPLAINT: - FLANK PAIN DIAGNOSES: - Allergy status to sulfonamides - Flank pain, bilateral - Hydronephrosis with renal and ureteral calculous obstruction - Hypothyroidism, unspecified - Other terminal make up operator (current) drug therapy - Unspecified asthma, uncomplicated 10/30/2024 20:14 [facility] [place] TYPE: Emergency COMPLAINT: - TROUBLE BREATHING DIAGNOSES: - Allergy status to sulfonamides - Hypothyroidism, unspecified - shelter (current) use of opiate analgesic - Other terminal make up operator (current) drug therapy - Other stimulant use, unspecified, uncomplicated - Shortness of breath - Unspecified asthma with (acute) exacerbation INPATIENT VISIT TRACKING (12 MO.) 04/08/2025 16:20 [facility] TYPE: Surgery DIAGNOSES: - Acute cystitis with hematuria - Calculus of ureter - Unspecified hydronephrosis - obstruction ureter stone [email or web address]
[2025-05-29 19:20] LABS: BASOPHILS 0.3 % (0.1-1.2); EOSINOPHILS 0.3 % (0.7-5.8); LYMPHOCYTES 21.7 % (19.3-51.7); MCH 28.3 PG (25.6-32.2); MCHC 32.0 g/dL (32.2-35.5); MCV 88.4 fL (79.4-94.8); MONOCYTES 10.6 % (4.7-12.5); NEUTROPHILS 66.8 % (34.0-71.1); RBC 4.24 M/uL (3.93-5.22)
[2025-05-29 19:45] LABS: ALT (SGPT) 15.0 U/L (14-59); AST (SGOT) 18.0 U/L (15-37); GLOMERULAR FILTRATION RATE,EST 87.0 mL/min (>60); PROTEIN, TOTAL 8.2 g/dL (6.4-8.2); UREA NITROGEN 10.0 mg/dL (7-18)
[2025-05-29] MEDS ORDERED: SODIUM CHLORIDE 0.9% 1,000 ML IV ONE (19:45)
[2025-05-29] MEDS ORDERED: MORPHINE SULFATE 4 MG/ML VIAL IV ONE (19:45)
[2025-05-29 19:51] LABS: BLOOD/HGB, URINE LARGE (Negative); KETONE, URINE >=80 (Negative); LEUK ESTERASE, URINE MODERATE (negative); NITRITE, URINE NEGATIVE (negative)
[2025-05-29 19:54] LABS: INR 1.0 (0.80-1.30); PROTIME 12.5 Sec (11.2-14.2)
[2025-05-29 19:58] LABS: BACTERIA, URINE 2+ /hpf (negative); CASTS, URINE NONE SEEN \\lpf; CRYSTALS, URINE NONE SEEN (0-1+); EPITHELIAL CELLS, URINE SQUAMOUS 1+ /lpf (0-1+); REFLEX CULTURE, URINE Yes (No)
[2025-05-29 20:02] LABS: LACTIC ACID, BLOOD 2.1 mmol/L (0.4-2.0)
[2025-05-29] MEDS ORDERED: KETOROLAC TROMETHAMINE 30 MG/ML VIAL IV ONE (20:15)
[2025-05-29] MEDS ORDERED: ACETAMINOPHEN 500 MG TAB PO ONE (20:15)
[2025-05-29] MEDS ORDERED: ACETAMINOPHEN 325 MG TAB PO PRN (22:15)
[2025-05-29] MEDS ORDERED: HYDROmorphone HCL 1 MG/ML SYR IV PRN (22:15)
[2025-05-29] MEDS ORDERED: KETOROLAC TROMETHAMINE 30 MG/ML VIAL IV PRN (22:15)
[2025-05-29] MEDS ORDERED: LACTATED RINGER'S 1,000 ML IV SCH (22:15)
[2025-05-29] MEDS ORDERED: MORPHINE SULFATE 4 MG/ML VIAL IV PRN (22:15)
[2025-05-29 22:34] VITALS: BP 154/84
[2025-05-29 22:41] LABS: LACTIC ACID, BLOOD 0.5 mmol/L (0.4-2.0)
[2025-05-29 23:24] VITALS: BP 154/84
--- NOTE | 2025-05-29 23:25 | NUR ---
PT ARRIVED TO ROOM 115 VIA STRETCHER. PT AMBULATED TO HOSPITAL BED IND. VSS. FACE FLUSHED BUT AFEBRILE. REPORTS FLANK PAIN 1/ BUT DECLINED PAIN MED AT THIS TIME. LSC. HRR, TACHY. TELE #7 PLACED. BTA, ABD OBESE. REPORTS LBM 1 DAY AGO. DUE TO VOID. LAC IV INFUSING LR @ 125MLS/HR. RAC SL WNL. PT PROVIDED LUNCHBOX AND ICE WATER PER REQUEST. CALL LIGHT WITHIN REACH.
[2025-05-30] VITALS (10 sets, daily range): BP systolic 140–173; BP diastolic 67–97
--- NOTE | 2025-05-30 00:21 | NUR ---
PT ASSISTED TO REPOSITION TO LEFT SIDE FOR COMFORT. DENIES ANY OTHER NEEDS AT THIS TIME.
--- NOTE | 2025-05-30 02:00 | NUR ---
PT C/O BILAT FLANK PAIN-MEDICATED W/ PRN IV MORPHINE. PT ASSISTED TO BR, LTM ONLY. VOIDED DARK TEA COLORED URINE, DENIED DYSURIA. IVF CHANGED TO RAC IV PER PT REQUEST. CPOX INITIATED PER ORDERS. CALL LIGHT WITHIN REACH.
[2025-05-30] MEDS ORDERED: ALBUTEROL SULFATE 0.083% 3 ML VIAL INH PRN (02:45)
--- NOTE | 2025-05-30 04:00 | NUR ---
PT REPORTS BEING COLD AND SHIVERING. TEMP 99.1. TEMPERATURE IN ROOM INCREASED. EXTRA BLANKET GIVEN.
--- NOTE | 2025-05-30 04:46 | NUR ---
PT ASSISTED TO BR, PT IND W/ AMBULATION AFTER LINES/TUBES MANAGED. MEDICATED W/ PRN TORADOL FOR C/O GENERALIZED BODY ACHES. UO SHANITA, NO ODOR. DENIES DYSURIA.
[2025-05-30 05:10] LABS: BASOPHILS 0.3 % (0.1-1.2); EOSINOPHILS 0.5 % (0.7-5.8); LYMPHOCYTES 22.9 % (19.3-51.7); MCH 29.0 PG (25.6-32.2); MCHC 32.8 g/dL (32.2-35.5); MCV 88.3 fL (79.4-94.8); MONOCYTES 14.2 % (4.7-12.5); NEUTROPHILS 61.9 % (34.0-71.1); RBC 3.66 M/uL (3.93-5.22)
[2025-05-30 05:49] LABS: ALT (SGPT) 22.0 U/L (14-59); AST (SGOT) 22.0 U/L (15-37); GLOMERULAR FILTRATION RATE,EST 116.0 mL/min (>60); PHOSPHORUS, INORGANIC 3.0 mg/dL (2.5-4.9); PROTEIN, TOTAL 6.7 g/dL (6.4-8.2); UREA NITROGEN 9.0 mg/dL (7-18)
--- NOTE | 2025-05-30 06:24 | NUR ---
PT AWAKE. REPORTS BEING SWEATY. PERSONAL FAN PROVIDED. VSS, TEMP SLIGHTLY UP AT 99.6. IVF INFUSING. CPOX IN PLACE.
--- NOTE | 2025-05-30 07:15 | NUR ---
REPORT RECIEVED FROM CHRISTY GRAY. PATIENT RESTING IN BED AND IS WITHOUT ANY NEEDS AT THIS TIME. CALL LIGHT AND PERSONAL BELONGINGS ARE WITHIN REACH. WHITE BOARD UPDATED.
--- NOTE | 2025-05-30 08:25 | NUR ---
PATIENT MEDICATED PER EMAR. PATIENT IV FLUSHED WITH 10ML OF NS, DRESSING IS INTACT. IV ABX INFUSING PER ORDER. PATIENT ASSESSMENT COMPLETED. PATIENT REQUESTING TO GET SOME REST DUE TO NOT BEING ABLE TO SLEEP MUCH LAST NIGHT. PATIENT WITHOUT FURTHER NEEDS AT THIS TIME. CALL LIGHT AND PERSONAL BELONGINGS ARE WITHIN REACH.
--- NOTE | 2025-05-30 09:09 | NUR ---
PATIENT IV ABX COMPLETED. IV FLUSHED WITH 10ML OF NS, DRESSING IS INTACT. IV FLUIDS INFUSING PER EMAR. PATIENT BLINDS CLOSED PER PATIENT REQUEST. PATIENT IS WITHOUT FURTHER NEEDS AT THIS TIME. CALL LIGHT AND PERSONAL BELONGINGS ARE WITHIN REACH.
--- NOTE | 2025-05-30 10:40 | NUR ---
PATIENT REPORTING INCREASE PAIN AND "READY FOR SOMETHING TO HELP WITH MY PAIN". PATIENT WITHOUT FURHTER NEEDS AT THIS TIME.
--- NOTE | 2025-05-30 10:49 | NUR ---
DR SANDOVAL AT BEDSIDE
[2025-05-30] MEDS ORDERED: IBLOOD GLUCOSE TEST STRIP 1 EA TEST XX PRN (11:00)
[2025-05-30] MEDS ORDERED: GLUCAGON,HUMAN RECOMBINANT 1 MG/ML VIAL SUB-Q PRN (11:00)
[2025-05-30] MEDS ORDERED: ENOXAPARIN SODIUM 40 MG/0.4 ML SYR SUB-Q SCH (11:00)
[2025-05-30] MEDS ORDERED: ACETAMINOPHEN 325 MG TAB PO PRN (11:00)
[2025-05-30] MEDS ORDERED: DEXTROSE 5% 1,000 ML IV PRN (11:00)
[2025-05-30] MEDS ORDERED: DEXTROSE 50% 50 ML SYR IV PRN ×2 (11:00)
[2025-05-30] MEDS ORDERED: SODIUM CHLORIDE 0.9% 1,000 ML IV SCH (11:00)
--- NOTE | 2025-05-30 11:08 | NUR ---
PATIENT RESTING IN BED, IV ALARMING OCCLUSION. IV ASSESSED AND INFUSING PER ORDER. PATIENT STATES "I'M HOT AND COLD" PATIENT TEMPERATURE TAKEN AND WAS 97.8. PATIENT IS WITHOUT FURTHER NEEDS AT THIS TIME. CALL LIGHT AND PERSONAL BELONGINGS ARE WITHIN REACH.
[2025-05-30] MEDS ORDERED: OXYCODONE HCL 5 MG TAB PO PRN (11:15)
--- NOTE | 2025-05-30 11:45 | NUR ---
PATIENT MEDICATED PER EMAR. PATIENT SITTING UP IN BED WAITING FOR LUNCH. PATIENT REQUESTING TO TAKE A SHOWER AFTER LUNCH. PATIENT IS WITHOUT FURTHER NEEDS AT THIS TIME. CALL LIGHT AND PERSONAL BELONGINGS ARE WITHIN REACH.
[2025-05-30] MEDS ORDERED: INSULIN LISPRO 100 UNIT/ML ML SUB-Q SCH (12:00)
[2025-05-30] MEDS ORDERED: PHARMACY RENAL DOSE ADJUSTMENT 1 DOSE MISC PO SCH (12:00)
[2025-05-30] MEDS ORDERED: IBLOOD GLUCOSE TEST STRIP 1 EA TEST VI SCH (12:00)
--- NOTE | 2025-05-30 12:15 | NUR ---
PATIENT UP IN SHOWER AT THIS TIME.
--- NOTE | 2025-05-30 12:53 | NUR ---
PATIENT SHOWERED INDEPENDENTLY WITH SET UP ASSISTANCE ONLY. A CLEAN GOWN AND SOCKS WERE PROVIDED, AND BED LINENS CHANGED.
--- NOTE | 2025-05-30 13:45 | NUR ---
PATIENT RESTING IN BED NEW IV PLACED TO PATIENT'S RIGHT WRIST. IV FLUIDS INFUSING CONTINUOUS PER ORDER. PATIENT IS WITHOUT FURTHER NEEDS AT THIS TIME. CALL LIGHT AND PERSONAL BELONGINGS ARE WITHIN REACH.
--- NOTE | 2025-05-30 14:45 | NUR ---
PATIENT RESTING IN BED ON HER LEFT SIDE WITH HER EYES CLOSED. EVEN AND UNLABORED RESPIRAITONS NOTED. CALL LIGHT AND PERSONAL BELONGINGS ARE WITHIN REACH.
--- NOTE | 2025-05-30 17:08 | NUR ---
PATIENT CALLED REPORTING NAUSEA. AN EMESIS BAG WAS PROVIDED AND PATIENT BEGAN TO VOMIT. V.S. TAKEN AND PATIENT HAD A LOW GRADE FEVER OF 99.0. RN KAMILA NOTIFIED AND ENTERED THE ROOM. PATIENT WAS PROVIDED WITH A WARM BLANKET AND A CLEAN EMESIS BAG. TELE LEADS REATTACHED TO PATIENT'S CHEST.
[2025-05-30] MEDS ORDERED: DEXTROAMP-AMPHE30 MG PO (17:25)
[2025-05-30] MEDS ORDERED: VENLAFAXINE HC225 MG PO (17:26)
[2025-05-30] MEDS ORDERED: MAGNESIUM OXID500 MG PO (17:29)
--- NOTE | 2025-05-30 18:40 | NUR ---
PATIENT RESTING IN BED. PATIENT UPDATED ON POC. DR SANDOVAL NOTIFIED THAT PATIENT IS REQUESTING HER HOME MEDICATIONS. MD STATES HE WILL ADD ORDERS. NO FURTHER ORDERS AT THIS TIME. PATIENT WITHOUT FURTHER NEEDS AT THIS TIME.
--- NOTE | 2025-05-30 19:27 | NUR ---
REPORT RECEIVED FROM CHRISTY TREVIÑO. PATIENT RESTING IN SIDE IN BED, REPORTS 7/10 PAIN. PRN PAIN MEDICATION GIVEN TO PATIENT. RESPIRATIONS EVEN AND UNLABORED BUT PATIENT APPEARS UNCOMFORTABLE. PATIENT UP TO RESTROOM WITH CHRISTY VILLALBA.
--- NOTE | 2025-05-30 19:34 | NUR ---
UP TO BTP, VOIDED, TOLERATED WELL, 1PA, IVF, TELE IN PLACE, NO C/O PAIN ON RETURN, REPOSTIIONS SELF IN BED, ON ROOM AIR, CPOX AT BEDSIDE
--- NOTE | 2025-05-30 20:50 | NUR ---
ASSESSMENT COMPLETED, IV SITE ASSESSED, EDEMATOUS AND WARM TO TOUCH. PATIENT REPORTS PAIN ABOVE IV SITE. IV SITE DISCONITNUED, CATHETER TIP INTACT. WARM COMPRESS AND ARM ELEVATED. SCHEDULED MEDICATIONS GIVEN TO PATIENT PER ORDER. PATIENT REPORTS 2/10 PAIN, SHE DENIES OTHER NEEDS, CALL LIGHT IN REACH
[2025-05-30] MEDS ORDERED: MAGNESIUM OXIDE 400 MG TABLET PO SCH (21:00)
[2025-05-30] MEDS ORDERED: QUETIAPINE FUMARATE 100 MG TAB PO SCH (21:00)
--- NOTE | 2025-05-30 21:20 | NUR ---
DR. SANDOVAL IN ROOM.
--- NOTE | 2025-05-30 21:48 | NUR ---
MEDICATION GIVEN TO PATIENT PER ORDER. IV FLUIDS RESTARTED, INFUSING WITHOUT DIFFICULTY. PATIENT DENIES FURTHER NEEDS, CALL LIGHT IN REACH
--- NOTE | 2025-05-30 22:16 | EKG ---
[facility] [address] [place] [address] Signed Sinus tachycardia Otherwise normal ECG When compared with ECG of 08-APR-2025 13:13, No significant change was found Confirmed by Ravi Sandoval MD () on 05/30/2025 10:16:46 PM Electronically Signed By: RAVI SANDOVAL MD 05/30/25 2216 PATIENT NAME: KVNG LOREDO Electrocardiogram DATE OF : 87 PHYSICIAN: RAVI SANDOVAL MD REPORT #: [id number] REPORT IS CONFIDENTIAL AND NOT TO BE RELEASED WITHOUT AUTHORIZATION
--- NOTE | 2025-05-30 23:21 | NUR ---
Resting, eyes closed, awakens easily. used call light, IVF/site checked. no requests.
[2025-05-31] VITALS (9 sets, daily range): BP systolic 133–148; BP diastolic 74–83
--- NOTE | 2025-05-31 00:34 | NUR ---
CALL LIGHT ANSWERED, PATIENT UP TO RESTROOM, X1 ASSIST. BACK TO BED WITHOUT DIFFICULTY. CALL LIGHT IN REACH, IVF INFUSING WITHOUT DIFFICULTY. FRESH WATER GIVEN, NO FURTHER NEEDS, CALL LIGHT IN REACH
--- NOTE | 2025-05-31 01:33 | NUR ---
ROUNDED ON PATIENT, WOKE TO RN ENTERING ROOM. VS OBTAINED AND RECORDED. INTAKE AND OUTPUT DOCUMENTED. PATIENT DENIES FURTHER NEEDS, CALL LIGHT IN REACH, IVF CONTINUING TO INFUSE WITHOUT DIFFICULTY PER ORDER.
--- NOTE | 2025-05-31 02:16 | NUR ---
RECEIVED CALL FROM LAB, +BLOOD CULTURE RESULTS, GRAM + COCCI IN THE AEROBIC BOTTLE.
--- NOTE | 2025-05-31 04:00 | NUR ---
ROUNDED ON PATIENT, PATIENT RESTING WITH EYES CLOSED, RESPIRATIONS EVEN AND UNLABORED. CPOX AT BEDSIDE. NO NEEDS, CALL LIGHT IN REACH
[2025-05-31 05:12] LABS: BASOPHILS 0.3 % (0.1-1.2); EOSINOPHILS 0.4 % (0.7-5.8); LYMPHOCYTES 22.6 % (19.3-51.7); MCH 28.7 PG (25.6-32.2); MCHC 32.0 g/dL (32.2-35.5); MCV 89.7 fL (79.4-94.8); MONOCYTES 12.0 % (4.7-12.5); NEUTROPHILS 64.6 % (34.0-71.1); RBC 3.59 M/uL (3.93-5.22)
--- NOTE | 2025-05-31 05:12 | NUR ---
VS OBTAINED AND RECORDED, INTAKE AND OUTPUT DOCUMENTED. PATIENT GIVEN FRESH WATER, DENIES ANY NEEDS, CALL LIGHT IN REACH. TEMPERATURE ADJUSTED IN ROOM PER REQUEST.
[2025-05-31 05:43] LABS: ALT (SGPT) 18.0 U/L (14-59); AST (SGOT) 9.0 U/L (15-37); GLOMERULAR FILTRATION RATE,EST 115.0 mL/min (>60); PHOSPHORUS, INORGANIC 4.1 mg/dL (2.5-4.9); PROTEIN, TOTAL 6.6 g/dL (6.4-8.2); UREA NITROGEN 4.0 mg/dL (7-18)
--- NOTE | 2025-05-31 07:18 | NUR ---
VERBAL REPORT RECEIVED FROM CHRISTY RICCI. PT RESTS IN BED AWAKE AND ALERT. CPOX IN PLACE, SPO2 95%. NO REQUESTS AT THIS TIME.
--- NOTE | 2025-05-31 07:40 | NUR ---
PATIENT BACK TO BED IVF INFUSING WTIHOUT DIFFICULTY. PATIENT DENIES NEEDS AT THIS TIME.
[2025-05-31] MEDS ORDERED: POTASSIUM CHLORIDE 10 MEQ TABCR PO ONE (07:45)
[2025-05-31] MEDS ORDERED: SPIRONOLACTONE50 MG PO (07:47)
--- NOTE | 2025-05-31 08:18 | NUR ---
SCHEDULED MEDICATIONS GIVEN PER EMAR ORDER. ASSESSMENT COMPLETED AND DOCUMENTED. PATIENT SITTING UP IN BED AWAKE AND ALERT ON PHONE. PATIENT DENIES PAIN OR NEEDS AT THIS TIME. CALL LIGHT IN REACH.
[2025-05-31] MEDS ORDERED: LEVOTHYROXINE SODIUM 137 MCG TAB PO SCH (09:00)
[2025-05-31] MEDS ORDERED: VENLAFAXINE HCL 75 MG CAPCR PO SCH (09:00)
--- NOTE | 2025-05-31 09:11 | NUR ---
PT GOT UP TO USE THE TOILET, COMPLETE BED CHANGE DONE, BED WAS WET DUE TO SWEAT FROM THE PT. GOWN CHANGE WELL. PT COMPLETED ORAL CARE WHILE IN THE RESTROOM. GOT PT FRESH ICE WATER AND MINT TEA, REQUESTED. CALL LIGHT IN BED NEXT TO PT'S ARM, PT REPORTS NEEDING NOTHING MORE AT THIS TIME.
--- NOTE | 2025-05-31 09:18 | NUR ---
pt awake in bed, abx completed at this time. call light in reach.
--- NOTE | 2025-05-31 10:36 | NUR ---
ROUNDED ON PATIENT. LAYING IN BED EYES CLOSED, RESPIRATIONS EVEN AND UNLABORED. CPOX AT BEDSIDE 97% RM. IVF INFUSING WITHOUT DIFFICULTY. NO NEEDS IDENTIFIED AT THIS TIME. CALL LIGHT AND BELONGINGS INREACH
--- NOTE | 2025-05-31 11:48 | NUR ---
PATIENT AWAKE AND ALERT SITTING UP IN BED WITH LUNCH TRAY SET UP AND EATING WELL. PATIENT STATED SHE WOULD LIKE TO GO ON A WALK AFTER LUNCH. PATIENT DENIES PAIN OR NEEDS AT THIS TIME. CALL LIGHT IN REACH. CPOX AT BEDSIDE 95% RA.
--- NOTE | 2025-05-31 12:36 | NUR ---
PATIENT UP TO RESTROOM AND NOW AMBULATING AROUND UNIT X2 LAPS WITH STEADY GAIT. PATIENT STATED "IT FEELS GOOD TO WALK AND MOVE" AND IS BACK IN ROOM SITTING UP IN RECLINER, CPOX ON AT 97%RM. TELE # 7, HR UP TO 110 WITH ABULATION. PATIENT DENIES PAIN AT THIS TIME. CALL LIGHT AND BELONGINGS IN REACH. IVF INFUSING WITHOUT DIFFICULTY.
--- NOTE | 2025-05-31 13:48 | NUR ---
PT SITTING IN CHAIR WATCHING TV. GOT PT FRESH ICE WATER AND A DIET SPRITE, REQUESTED. PT HAS CALL LIGHT WITHIN REACH AND IS REPORTING NEEDING NOTHING MORE AT THIS TIME.
--- NOTE | 2025-05-31 14:30 | NUR ---
ANSWERED PATIENT CALL LIGHT FOR ASSISTANCE TO THE RESTOOM WITH IV LINES. PATIENT STEADY ON FEET. NO OTHER NEEDS IDENTIFIED AT THIS TIME.
--- NOTE | 2025-05-31 15:10 | NUR ---
DR SANDOVAL IN ROOM DISCUSSING D/C WITH PATIENT. PATIENT SITTING UP IN RECLINER AWAKE AND ALERT. 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 FOCUSED ASSESSMENET COMPLETED. PATIENT DENIES FURTHER NEEDS AT THIS TIME. CALL LIGHT IN REACH.
[2025-05-31] MEDS ORDERED: OXYCODONE HCL5 M1 PO (15:26)
[2025-05-31] MEDS ORDERED: CEFPODOXIME PR200 MG PO (15:28)
--- NOTE | 2025-05-31 15:55 | NUR ---
PATIENT IV D/C BY CENTER MACHINE OPERATOR, VS OBTAINIED AND DOCUMENTED. DISCHARGE PACKET DISCUSSED WITH PATIENT AND PATIENT VERBALIZED UNDERSTANDING AND ALL QUESTIONS ANSWERED. NO NEEDS AT THIS TIME. PATIENT GETTING DRESSED. CALL LIGHT IN REACH.
== END 2025-05-31 16:21 | disposition home or self-care (01) | DRG 872 ==
LOC: ED 18:58 → MS 19:00
PROVIDERS: Family Medicine; ADMIT Family Medicine; ATTEND Family Medicine
DX: A41.89 Other specified sepsis (principal); N39.0 Urinary tract infection, site not specified; E03.9 Hypothyroidism, unspecified; F32.A Depression, unspecified; J45.909 Unspecified asthma, uncomplicated; Z96.0 Presence of urogenital implants; F12.10 Cannabis abuse, uncomplicated; R73.03 Prediabetes; E87.6 Hypokalemia; B96.89 Other specified bacterial agents as the cause of diseases classified elsewhere; Z87.442 Personal history of urinary calculi; Z91.048 Other nonmedicinal substance allergy status; Z79.899 Other long term (current) drug therapy; Z79.51 Long term (current) use of inhaled steroids; Z79.890 Hormone replacement therapy; Z90.49 Acquired absence of other specified parts of digestive tract; Z87.81 Personal history of (healed) traumatic fracture; Z98.890 Other specified postprocedural states; Z88.2 Allergy status to sulfonamides; Z87.820 Personal history of traumatic brain injury
CPT/HCPCS: 36415; 71045; 74176; 80053; 81001; 83605; 83735; 84100; 84703; 85025; 85610; 85730; 93005; 93010; 94762; 94799; A9270; J0696; J1650; J1815; J1885; J2270; J2405; J7030; J7121

== ENCOUNTER 2025-06-05 20:01 | Emergency (ER) | payer OTHER ==
[~2025-06-05] VITALS: Ht 175.3 cm; Wt 155.0 kg
[~2025-06-05 20:01] MED LIST changes: +CEFPODOXIME PR200 MG PO; +DEXTROAMP-AMPHE30 MG PO; +LEVOFLOXACIN750 MG PO; +MAGNESIUM OXID500 MG PO; +OXYCODONE HCL5 M1 PO; +VENLAFAXINE HC225 MG PO
--- OUTSIDE RECORDS SUMMARY | 2025-06-05 20:03 | XMS ---
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 - 2 Visits in 30 Days CARE PROVIDERS -, [facility]ist: Inside Phone Sales Current [place] PHONE: [phone] -, [place]- Dentist: Inside Phone Sales Current [facility] PHONE: [phone] [facility] Current FAMILY PHONE: Unknown Ana Miner Physician Nurse Substance Abuse Current MELVINA-C PHONE: [phone] Tello has no Care Guidelines for this patient. Uzma VISIT COUNT (12 MO.) 6 GELY Roman TOTAL 6 NOTE: Visits indicate total known visits. ED/UCC VISIT TRACKING (12 MO.) 06/05/2025 20:02 [facility] [place] TYPE: Emergency COMPLAINT: - KIDNEY INFECTION 05/29/2025 18:59 [facility] [place] TYPE: Emergency COMPLAINT: - FEVER 05/05/2025 15:39 [facility] [place] TYPE: Emergency COMPLAINT: - FEVER DIAGNOSES: - Allergy status to sulfonamides - Flank pain, bilateral - Hypothyroidism, unspecified - Other manager terminal (current) drug therapy - Tubulo-interstitial nephritis, not specified as acute or chronic - Unspecified asthma, uncomplicated 04/13/2025 18:40 [facility] [place] TYPE: Emergency COMPLAINT: - POST OP PROBLEM DIAGNOSES: - Allergy status to sulfonamides - Flank pain, left side - Hematuria, unspecified - Hypothyroidism, unspecified - Other residential (current) drug therapy - Unspecified asthma, uncomplicated 04/08/2025 09:56 [facility] [place] TYPE: Emergency COMPLAINT: - FLANK PAIN DIAGNOSES: - Allergy status to sulfonamides - Flank pain, bilateral - Hydronephrosis with renal and ureteral calculous obstruction - Hypothyroidism, unspecified - Other residential (current) drug therapy - Unspecified asthma, uncomplicated 10/30/2024 20:14 [facility] [place] TYPE: Emergency COMPLAINT: - TROUBLE BREATHING DIAGNOSES: - Allergy status to sulfonamides - Hypothyroidism, unspecified - intermediate designer (current) use of opiate analgesic - Other residential (current) drug therapy - Other stimulant use, unspecified, uncomplicated - Shortness of breath - Unspecified asthma with (acute) exacerbation INPATIENT VISIT TRACKING (12 MO.) 05/30/2025 10:58 [facility] [place] TYPE: Medical Surgical COMPLAINT: - SEPSIS COMPLICATED UTI DIAGNOSES: - Acquired absence of other specified parts of digestive tract - Acquired absence of other specified parts of digestive tract - Allergy status to sulfonamides - Allergy status to sulfonamides - Cannabis abuse, uncomplicated - Cannabis abuse, uncomplicated - Depression, unspecified - Depression, unspecified - Hormone replacement therapy - Hormone replacement therapy - Hypokalemia - Hypokalemia - Hypothyroidism, unspecified - Hypothyroidism, unspecified - custodial (current) use of inhaled steroids - custodial (current) use of inhaled steroids - Other manager terminal (current) drug therapy - Other manager terminal (current) drug therapy - Other nonmedicinal substance allergy status - Other nonmedicinal substance allergy status - Other specified bacterial agents as the cause of diseases classified elsewhere - Other specified bacterial agents as the cause of diseases classified elsewhere - Other specified postprocedural states - Other specified postprocedural states - Other specified sepsis - Other specified sepsis - Personal history of (healed) traumatic fracture - Personal history of (healed) traumatic fracture - Personal history of traumatic brain injury - Personal history of traumatic brain injury - Personal history of urinary calculi - Personal history of urinary calculi - Prediabetes - Prediabetes - Presence of urogenital implants - Presence of urogenital implants - Unspecified abdominal pain - Unspecified asthma, uncomplicated - Unspecified asthma, uncomplicated - Urinary tract infection, site not specified - Urinary tract infection, site not specified 04/08/2025 16:20 [facility] TYPE: Surgery DIAGNOSES: - Acute cystitis with hematuria - Calculus of ureter - Unspecified hydronephrosis - obstruction ureter stone [email or web address]
[2025-06-05] MEDS ORDERED: SODIUM CHLORIDE 0.9% 1,000 ML IV ONE (20:15)
[2025-06-05] MEDS ORDERED: MORPHINE SULFATE 4 MG/ML VIAL IV ONE (20:15)
[2025-06-05] MEDS ORDERED: levoFLOXacin 750 MG PIGGYBACK IV ONE (20:15)
[2025-06-05 20:26] LABS: BASOPHILS 0.5 % (0.1-1.2); EOSINOPHILS 2.0 % (0.7-5.8); LYMPHOCYTES 33.9 % (19.3-51.7); MCH 28.1 PG (25.6-32.2); MCHC 31.2 g/dL (32.2-35.5); MCV 90.1 fL (79.4-94.8); MONOCYTES 7.6 % (4.7-12.5); NEUTROPHILS 55.7 % (34.0-71.1); RBC 4.34 M/uL (3.93-5.22)
[2025-06-05 20:46] LABS: BLOOD/HGB, URINE LARGE (Negative); KETONE, URINE TRACE (Negative); LEUK ESTERASE, URINE SMALL (negative); NITRITE, URINE NEGATIVE (negative)
[2025-06-05 20:48] LABS: ALT (SGPT) 20.0 U/L (14-59); AST (SGOT) 11.0 U/L (15-37); GLOMERULAR FILTRATION RATE,EST 83.0 mL/min (>60); PROTEIN, TOTAL 7.9 g/dL (6.4-8.2); UREA NITROGEN 10.0 mg/dL (7-18)
[2025-06-05 20:50] LABS: INR 0.89 (0.80-1.30); PROTIME 11.4 Sec (11.2-14.2)
[2025-06-05 20:52] LABS: BACTERIA, URINE NONE SEEN /hpf (negative); CASTS, URINE NONE SEEN \\lpf; CRYSTALS, URINE NONE SEEN (0-1+); EPITHELIAL CELLS, URINE SQUAMOUS 3+ /lpf (0-1+)
[2025-06-05 20:53] LABS: REFLEX CULTURE, URINE No (No)
[2025-06-05 21:03] LABS: LACTIC ACID, BLOOD 1.5 mmol/L (0.4-2.0)
[2025-06-05] MEDS ORDERED: HYDROmorphone HCL 1 MG/ML SYR IV PRN (21:15)
[2025-06-05] MEDS ORDERED: PHENAZOPYRIDINE HCL 100 MG TAB PO ONE (21:30)
[2025-06-05] MEDS ORDERED: ONDANSETRON 4 MG HOME.PACK SL ONE (23:15)
[2025-06-05] MEDS ORDERED: HYDROCODONE BIT/ACETAMINOPHEN 5/325 MG 1 TAB HOME.PACK PO ONE (23:15)
[2025-06-05 23:21] VITALS: BP 130/80
== END 2025-06-05 23:22 | disposition home or self-care (01) ==
LOC: ED 20:01
PROVIDERS: Family Medicine
DX: N39.0 Urinary tract infection, site not specified (principal); J45.909 Unspecified asthma, uncomplicated; E03.9 Hypothyroidism, unspecified; Z79.899 Other long term (current) drug therapy; Z88.2 Allergy status to sulfonamides; Z91.048 Other nonmedicinal substance allergy status
CPT/HCPCS: 36415; 71260; 74176; 80053; 81001; 83605; 84703; 85025; 85379; 85610; 96365; 96366; 96367; 96375; 99284-25; A9270; J0696; J1790; J1956; J2270; J2405; J7030; Q9967